=== PATIENT | female | born 1960 ===

== ENCOUNTER → 2024-08-27 | Outpatient (CLI) | payer BC ==
[2024-09-06 11:18] LABS: HPV HIGH RISK BY TMA Not Detected; HPV SOURCE Cerv/Endocerv
== END ==
LOC: LAB 17:56 → LAB SHORT 17:56
PROVIDERS: Internal Medicine
DX: Z00.00 Encounter for general adult medical examination without abnormal findings (principal)
CPT/HCPCS: 87624; G0123